=== PATIENT | male | born 1980 | race Caucasian/White ===

== ENCOUNTER 2016-12-16 15:12 | Emergency (ER) | payer OTHER ==
[~2016-12-16 15:12] MED LIST: TRAMADOL HCL50 M1 PO
== END 2016-12-16 18:20 | disposition home or self-care (01) ==
LOC: CED 15:12
DX: T78.3XXA Angioneurotic edema, initial encounter (principal); T78.40XA Allergy, unspecified, initial encounter; E11.9 Type 2 diabetes mellitus without complications; I10 Essential (primary) hypertension; Z86.73 Personal history of transient ischemic attack (TIA), and cerebral infarction without residual deficits; E78.5 Hyperlipidemia, unspecified; Z88.0 Allergy status to penicillin; Z88.8 Allergy status to other drugs, medicaments and biological substances
CPT/HCPCS: 36415; 82947; 96374; 96375; 99284; J1200; J2930

== ENCOUNTER 2017-02-06 11:10 | Emergency (ER) | payer OTHER ==
--- NOTE | ~2017-02-06 | CT4 ---
[facility] A Service of [facility] RADIOLOGY TEXT RESULTS PATIENT: BINDU MAN LOCATION: [facility] : [birth year] UNIT #: [id number] AGE: [address]: Rakesh Steele MD SEX: M ORDER DR: [id number] [facility] [address] [place], [place] [address] [id number] MR#: [id number] Acc #: [id number] NAME: BINDU MAN : 1980 SEX: M STUDY DATE/TIME: 02/06/2017 12:45 UNIT: [facility] ROOM: STUDY DESCRIPTION: CT Abd and Pelv Wo Cont Attending Physician: Rakesh Steele M.D. Ordering Physician: Rakesh Steele M.D. Primary Care Physician: No Primary Care Physician MEDICAL IMAGING REPORT This report is preliminary unless electronic signature is present EXAM CT scan of the abdomen and pelvis without contrast. HISTORY Abscess in right abdominal wall with pus leaking out for 3 days. Right-sided pain. COMPARISON 08/06/2016 TECHNIQUE Axial 3-mm images were obtained through the abdomen and pelvis without IV or oral contrast. This CT exam was performed with one or more of the following radiation dose reduction techniques: automatic exposure control, adjustment of mA and/or kV according to patient size, and iterative reconstruction. FINDINGS There is a 1-cm nodule in the right lower lobe, unchanged from 08/06/2016. This was also noted in February 2014 and is unchanged. The liver, gallbladder, spleen, pancreas, adrenal glands, and kidneys are normal in appearance. The aorta is normal in size. There is no adenopathy. The bowel is normal, and the bladder and prostate gland are normal. In the right flank laterally, slightly above the umbilicus, there is skin thickening involving a large area that is at least 20 from front to back. There is increased density in the subcutaneous fat, and within this increased density, there is about a 5-cm area of air bubbles, consistent with an abscess. No fluid is visible. A similar, but smaller, abnormality is present in the upper right buttock region. This is composed primarily of a few air bubbles in the STS. [facility] A Service of [facility] RADIOLOGY TEXT RESULTS PATIENT: BINDU MAN LOCATION: [facility] : [birth year] UNIT #: [id number] AGE: [address]: Rakesh Steele MD SEX: M ORDER DR: subcutaneous fat. It is about 4 cm x 2.7 cm. there is no obvious overlying skin thickening on CT, and there is no inflammation in the fat. IMPRESSION 1. In the right flank slightly above the level of the umbilicus, there is a large area of skin thickening measuring at least 20 cm in maximum diameter, with underlying increased density in the subcutaneous fat, consistent with inflammation or infection. Centrally, within this region is about a 5-6 cm area of air bubbles extending up to the skin, consistent with subcutaneous abscess. 2. Lower in the right abdomen, more posteriorly, lateral to the mid buttocks region, there is a subcutaneous 4 x 3-cm area of air bubbles, consistent with a second abscess. This has very little, if any, visible skin thickening, and there is no surrounding inflammation. 3. Stable 1-cm nodule, right base, is unchanged since 2014, consistent with a granuloma. Dictated by... Daniel Robertson M.D. THIS IS AN ELECTRONICALLY VERIFIED REPORT Daniel Robertson M.D. at 02/07/2017 7:06 AM Edilma TD: 02/06/2017 17:45 JOB #: [id number] MEDICAL IMAGING REPORT Page 1 of 1 COPY
--- NOTE | ~2017-02-06 | EKG ---
PATIENT: BINDU MAN UNIT #: [id number] Ventricular Rate: 109 BPM Atrial Rate: 109 BPM P-R Interval: 118 ms QRS Duration: 86 ms Q-T Interval: 336 ms QTC Calculation(Bezet): 452 ms P [place]: 41 degrees Calculated R [place]: 43 degrees Calculated T [place]: 8 degrees Diagnosis Line: Sinus tachycardia Diagnosis Line: Otherwise normal ECG Diagnosis Line: When compared with ECG of 14-MAY-2016 01:33, Diagnosis Line: No significant change was found Diagnosis Line: Confirmed by LIANET WEST MD ([id number]) on Diagnosis Line: 02/06/2017 3:52:59 PM INTERPRETING MD: BRETT RICHARDS
[2017-02-06 12:10] LABS: BASOPHIL# 0.1 X10e3 (0-0.3); BASOPHIL% 0.8 % (0-2.5); DIFF IND NO; EOSINOPHIL# 0.1 X10e3 (0-0.7); EOSINOPHIL% 0.7 % (0.0-7.0); HEMATOCRIT 35.9 % (38.0-50.0); HEMOGLOBIN 11.4 gm/dL (13.0-16.0); LYMPHOCYTE% 9.8 % (17.0-45.0); MEAN CELL VOLUME 73.8 FL (83-96); MEAN CORPUSCULAR HEMOGLOBIN 23.4 PG (28-34); MEAN CORPUSCULAR HGB CONC 31.7 g/dL (30-36); MEAN PLATELET VOLUME 8.5 FL (6.5-11.5); MONOCYTE# 1.3 X10e3 (0-1.0); MONOCYTE% 13.2 % (3.0-12.0); NEUTROPHIL# 7.4 X10e3 (1.5-7.1); NEUTROPHIL% 75.5 % (40-75); PLATELET COUNT 316 X10e3 (140-420); RED BLOOD COUNT 4.86 X10e (3.90-5.60); RED CELL DISTRIBUTION WIDTH 15.9 % (11.0-15.5); WHITE BLOOD COUNT 9.8 X10e3 (4.0-10.5)
[2017-02-06 12:30] LABS: CALCIUM SERUM 8.8 mg/dL (8.4-10.2); GLOM FILT RATE Estimated 97.1 mL/min (>60); POTASSIUM 4.4 mmol/L (3.5-5.1)
== END 2017-02-06 14:50 | disposition home or self-care (01) ==
LOC: CED 11:10
PROVIDERS: Emergency Medicine
DX: L02.211 Cutaneous abscess of abdominal wall (principal); E11.9 Type 2 diabetes mellitus without complications; I10 Essential (primary) hypertension; Z88.0 Allergy status to penicillin
CPT/HCPCS: 36415; 74176; 80048; 85025; 93005; 96372; 99284; J1885

== ENCOUNTER 2017-02-09 11:08 | Inpatient (IN) | payer OTHER ==
--- NOTE | ~2017-02-09 | OR ---
Unit #: [id number] #: [id number] Patient: BINDU MAN [id number] [address] [place], [place] [address] [id number] MR#: [id number] NAME: BINDU MAN ROOM: 323 Date of Procedure: 02/10/2017 Admission Date: 02/09/2017 Surgeon: Bill Cheng M.D. : 1980 Attending Physician: You Gutiérrez M.D. OPERATIVE REPORT PREOPERATIVE DIAGNOSIS Abscess, right flank. POSTOPERATIVE DIAGNOSIS Abscess, right flank. PROCEDURES PERFORMED Incision drainage and debridement of an 18 cm x 6 cm x 4 cm abscess, right flank. ESTIMATED BLOOD LOSS 50 mL. INDICATIONS FOR PROCEDURE Mr. Reardon is a poorly-controlled diabetic at 37 years of age. He has had multiple soft tissue infections and presented to the ER for the second time in 3 days with an abscess in the right flank. Despite oral antibiotics as an outpatient, it had progressed and there was associated cellulitis and gross purulent drainage. He is brought to the operating room for adequate debridement and drainage. DESCRIPTION OF PROCEDURE The patient was transported from his hospital room to the operating room, and after induction of general endotracheal anesthesia, he was placed in a lateral position with the right side up. He was then prepped and draped in usual sterile fashion. With the abscess was spontaneously draining, a probe was passed to define the extent of tunneling of the abscess cavity and this was marked. A 10-blade was then used to open and unroof the abscess cavity and further purulent drainage was evacuated. The necrotic and grossly infected tissue was sharply debrided and hemostasis obtained. I then copiously irrigated the wound with sterile saline and ensured hemostasis and then packed the wound with Kerlix soaked in Betadine. To hold the packing in position for 24 hours, a #1 Vicryl sutures were used as stay sutures. ABD and foam tape were placed as dressing. Sponges and needle counts were correct x3. The patient tolerated the procedure well and transported to recovery in stable condition. Dictated by... Bill Cheng M.D. RS/modl Unit #: [id number] #: [id number] Patient: BINDU MAN TD: 02/10/2017 15:03 JOB #: [id number] OPERATIVE REPORT Page 1 of 1 X Bill Cheng MD PROCEDURE OPERATIVE NOTE
--- NOTE | ~2017-02-09 | HP ---
Unit #: [id number] #: [id number] Patient: BINDU MAN [id number] [address] [place], [place] [address] [id number] I MR#: [id number] NAME: BINDU MAN ROOM: 33216 Age: 37 Sex: M Admission Date: 02/09/2017 : 1980 Attending Physician: Carli Hercules M.D. Primary Care Physician: Primary Care Physician No HISTORY AND PHYSICAL CHIEF COMPLAINT Abscess right side HISTORY OF PRESENT ILLNESS The patient is a 37-year-old male with past medical history of diabetes, hypertension, hyperlipidemia, cerebrovascular accident who presented to the emergency department for evaluation of the above. The patient states that he noticed a bump on his abdomen about a week ago. It has gotten progressively bigger and more red. He states that it is quite painful. He was seen in the emergency department on February 06, 2017. A CT of the abdomen and pelvis was done and showed findings consistent with abscess/cellulitis. He was discharged home on clindamycin which he has been taking. He states that he has been taking two pills twice daily instead of one pill four times daily, but he has been taking it with no improvement. It is now draining, malodorous, pus. He reports chills, but no documented fever. In the emergency department today, he was given Vancomycin as well as morphine and Zofran. He is being admitted to [facility] for evaluation and further treatment. PAST MEDICAL HISTORY 1. Admission to [facility] in May 2016 for what sounds like hemorrhagic stroke. He had apparently had a stroke in March 2016. He was placed on Coumadin at that time, then had a subsequent bleed. He was taken off Coumadin in May (no records). 2. Cerebrovascular accident in March 2016 with residual weakness of the right upper extremity and speech abnormalities. 3. Hypertension. 4. Hyperlipidemia. 5. Diabetes. PAST SURGICAL HISTORY 1. Left ankle surgery. 2. Left carotid endarterectomy. 3. Incision and drainage of abscesses. SOCIAL HISTORY The patient lives with his . There is no tobacco or alcohol use. He is on disability. The patient states that he walks without assistance. FAMILY HISTORY Is notable for his mother having COPD. He does not know his dad's Unit #: [id number] #: [id number] Patient: BINDU MAN history. ALLERGIES Penicillin HOME MEDICATIONS 1. Cetirizine 10 mg daily 2. Zantac 150 mg twice daily 3. Amitriptyline 75 mg daily 4. Lipitor 80 mg daily 5. Aspirin 81 mg daily 6. Plavix 75 mg daily 7. Prinivil 40 mg daily 8. Amlodipine 10 mg daily 9. Levemir 25 units daily 10. Propanolol 80 mg daily REVIEW OF SYSTEMS A complete review of systems is negative except as indicated in the HPI. The patient states his blood sugars are typically in the 200s. DIAGNOSTIC STUDIES IMAGING: CT of the abdomen and pelvis from February 06, 2017, showed findings concerning for abscess/cellulitis involving the right flank and right abdomen. LABORATORY: Complete blood count from today notable for a hemoglobin and hematocrit of 10.6 and 33.2 respectively. Basic metabolic panel notable for a glucose of 337. PHYSICAL EXAMINATION VITAL SIGNS: Temperature 98.6, pulse 104, respirations 16, blood pressure 154/98. Oxygen saturation is 100% on room air. GENERAL: The patient is a male who is awake and alert in no acute distress. HEENT: The head is atraumatic. Mucous membranes are moist. NECK: Supple. Trachea is midline. CARDIOVASCULAR: Regular rate and rhythm. LUNGS: Clear to auscultation bilaterally. There is no increased work of breathing. ABDOMEN: Tender to palpation in the region of cellulitis/abscess. Bowel sounds are present. EXTREMITIES: Nontender with no pedal edema. NEUROLOGIC: The patient is awake and alert. He follows commands. PSYCHIATRIC: Mood and affect are normal. The patient is cooperative. SKIN: The right lower abdomen demonstrates an open wound that is approximately dime sized that is actively draining purulent material with surrounding errythema, warmth and induration. He is tenderness to palpation in this area. Extremities are nontender with no pedal edema. ASSESSMENT The patient is a 37-year-old male with: 1. Abdominal wall abscess/cellulitis. There are two distinct areas of abscess noted on CT. The patient failed outpatient treatment with clindamycin. He received Vancomycin in the emergency department. 2. Uncontrolled diabetes. The patient's glucose is 337 on basic metabolic panel. Unit #: [id number] #: [id number] Patient: BINDU MAN 3. Microcytic anemia. The patient's hemoglobin was 11.4 on February 06, 2017, it is 10.6 today. 4. History of cerebrovascular accident with residual right-sided weakness. 5. Hypertension. 6. Hyperlipidemia. PLAN 1. Admit to intermediate level. 2. Healthy heart, consistent carbohydrate diet. 3. Nothing by mouth after midnight for likely surgical intervention. 4. Normal saline at 75 mL/hour. 5. Blood cultures x2. 6. Wound culture and sensitivity. 7. Vancomycin IV pending further workup. 8. Consult [facility] regarding abdominal wall abscess. 9. Morphine p.r.n. 10. Zofran p.r.n. 11. Hemoglobin A1c 12. Low dose sliding scale insulin with AccuChek. 13. Check EKG for further evaluation of tachycardia. 14. Repeat labs in the morning including INR. 15. Sequential compression devices for deep venous thrombosis prophylaxis. 16. Hold aspirin and Plavix. 17. Additional workup and consultants based on above. Dictated by Carli Hercules M.D. LINDA/nae TD: 02/09/2017 18:18 JOB #: [id number] HISTORY AND PHYSICAL Page 1 of 1 X Carli Hercules MD X HISTORY AND PHYSICAL
--- NOTE | ~2017-02-09 | EKG ---
PATIENT: BINDU MAN UNIT #: [id number] Ventricular Rate: 112 BPM Atrial Rate: 112 BPM P-R Interval: 116 ms QRS Duration: 78 ms Q-T Interval: 328 ms QTC Calculation(Bezet): 447 ms P [place]: 26 degrees Calculated R [place]: 25 degrees Calculated T [place]: 13 degrees Diagnosis Line: Sinus tachycardia Diagnosis Line: Otherwise normal ECG Diagnosis Line: When compared with ECG of 06-FEB-2017 11:53, Diagnosis Line: No significant change was found Diagnosis Line: Confirmed by PAOLO SURESH MD ([id number]) on Diagnosis Line: 02/10/2017 10:04:54 AM INTERPRETING MD: MÓNICA
--- NOTE | ~2017-02-09 | DS ---
Unit #: [id number] #: [id number] Patient: BINDU MAN [id number] [address] [place], [place] [address] [id number] I MR#: [id number] NAME: BINDU MAN ROOM: 238 Age: 37 Sex: M Admission Date: 02/09/2017 : 1980 Discharge Date: 02/12/2017 Attending Physician: You Gutiérrez M.D. Primary Care Physician: No Primary Care Physician DISCHARGE SUMMARY REASON FOR ADMISSION Right abdominal wall abscess. HISTORY OF PRESENT ILLNESS/HOSPITAL COURSE Patient is a very pleasant 37-year-old male with an underlying history of diabetes, hypertension, hyperlipidemia, prior history of CVA, who presented secondary to abdominal wall abscess/cellulitis. Please refer to H and P for complete details. He was subsequently admitted. He underwent a CT abdomen and pelvis without contrast on February 06, 2017 performed in the emergency room. It did reveal in the right flank a large area of skin thickening measuring approximately 20 cm consistent with inflammation and/or infection. Lower in the right abdomen, more posteriorly, there is a subcutaneous 4 x 3 cm area of air bubbles consistent with a second abscess. Because of these abnormal results and secondary to a history of diabetes with his hemoglobin A1C this hospital admission being 9%, consultation was placed to [facility] who saw and evaluated patient. Ultimately patient did undergo an I/D of the aforementioned area on February 10, 2017. Postoperatively he otherwise did well and his pain was controlled initially with IV medications, subsequently transitioned to p.o. medications. Through hospital course he underwent routine Accu-Cheks secondary to his history of diabetes and was maintained on appropriate symptom management. At this point in time patient is clinically stable for discharge. [facility] has made a recommendation for Orbactiv at time of discharge therefore the patient will be discharged home. He will follow up in short stay later for Orbactiv injection. He will follow up with Dr. Neena Castillo at [address] in approximately 7 to 10 days for diabetic management, hypertension management as well as in regard to his prior CVA history. He will follow up with [facility] in approximately 7 to 10 days for wound reevaluation. VNA/Home health services will also follow the patient at time of discharge for appropriate wound care dressings and/or changes. FINAL DIAGNOSES Unit #: [id number] #: [id number] Patient: BINDU MAN 1. Abdominal wall abscess x2, status post incision and debridement. 2. Diabetes with hemoglobin A1C 9%, poorly controlled. 3. Prior history of cerebrovascular accident March 2016. 4. Residual right upper extremity weakness. 5. Hypertension. 6. Hyperlipidemia. 7. Obesity. DISCHARGE MEDICATIONS 1. Lortab 7.5/325 one tablet p.o. q.6 h. p.r.n. #30 prescription given by [facility]. 2. Elavil 75 mg p.o. q.h.s. 3. Cetirizine 10 mg p.o. daily. 4. Lipitor 80 mg p.o. q.h.s. 5. Norvasc 10 mg p.o. daily. 6. Inderal LA 80 mg p.o. daily. 7. Zestril 40 mg p.o. daily, 8. Levemir 25 units subcu q.a.m. 9. Zantac 150 mg p.o. b.i.d. 10. Aspirin 81 mg p.o. daily. 11. Plavix 75 mg p.o. daily. DISCHARGE CONDITION Stable. DISCHARGE DISPOSITION Home. FOLLOWUP Appropriate followup as outlined above. Dictated by... Bell Gutierrez/aimee TD: 02/12/2017 15:06 JOB #: [id number] DISCHARGE SUMMARY Page 1 of 1 X You Gutiérrez MD X DISCHARGE SUMMARY
--- NOTE | ~2017-02-09 | BMI ---
[facility] Nutrition Therapy DATE: 02/11/17 Patient: BINDU MAN Physician: ETELVINA Address: [address] [place] [address] Room/Bed: [address] [place] [address], Zip: [place] [address] Admit Date: 02/09/17 Date of : [birth year] Height: 4 11 Weight: 226 102.6 HIGH BMI NOTE: ANTHROPOMETRICS: HT: 4'11" WT: 102.6 KG BMI: 45.7 DIET: CONSISTENT CARBOHYDRATE RECOMMENDATIONS: 1. ADD A HEART HEALTHY DIET RESTRICTION IN ORDER TO PROMOTE GRADUAL WEIGHT LOSS TOWARDS A HEALTHY BMI. Respectfully, NAKUL VOGEL RD, LD [employer] [facility] cc: client file
--- NOTE | ~2017-02-09 | CO ---
Unit #: [id number] #: [id number] Patient: BNIDU MAN [id number] [address] [place], [place] [address] [id number] MR#: [id number] NAME: BINDU MAN ROOM: 323 Age: 37 Sex: M Admission Date: 02/09/2017 : 1980 Attending Physician: You Gutiérrez M.D. Primary Care Physician: Primary Care Physician No Consultation Date: 02/09/2017 CONSULTATION REPORT PRIMARY CARE PHYSICIAN Unknown. HISTORY OF PRESENT ILLNESS Mr. Reardon is a 37-year-old gentleman with poorly-controlled diabetes, who presents back to the emergency room 3 days after his initial visit with a spontaneously draining abscess in the right flank. He was initially seen on 02/06/2017 and he had some erythema and tenderness, but did not have a daniel abscess. He was put on outpatient oral antibiotics and has now had progression and it has developed into cellulitis with spontaneously draining abscess. The patient denies any trauma to the area. He has not had any injections in this area. He has had previous skin abscesses and a previous wound culture grew out E. coli. PAST MEDICAL HISTORY He had a stroke a year ago from what sounds like a spontaneous clot in the carotid artery and underwent carotid endarterectomy, history of poorly-controlled diabetes, hypertension, hypercholesterolemia, he has had left knee surgery, and he has anemia of chronic disease. ALLERGIES Allergic to penicillin. MEDICATIONS Well documented on the reconciliation sheet and they include cetirizine 10 mg daily, Zantac 150 mg b.i.d., Elavil 75 mg at bedtime, Lipitor 80 mg daily, aspirin 81 mg daily, Prinivil 40 mg daily, amlodipine 10 mg daily, Levemir 25 units subcutaneous b.i.d., Plavix 75 mg daily, and propranolol 80 mg daily. FAMILY HISTORY Diabetes. SOCIAL HISTORY Noncontributory. . is at the bedside. REVIEW OF SYSTEMS Previous culture is discussed. It is unclear the etiology of his stroke. He is unaware if he has ever had hypercoagulable evaluation. PHYSICAL EXAMINATION VITAL SIGNS: Temperature is 98.6, pulse 113 and regular, respirations 30 and unlabored, blood pressure 159/102. GENERAL: He is awake, alert, oriented in all spheres. Pleasant and Unit #: [id number] #: [id number] Patient: BINDU MAN. HEENT: No carotid bruits. CARDIAC: Regular rate and rhythm without murmur. LUNGS: Clear throughout. ABDOMEN: Soft. There are no peritoneal signs in the right flank. He has an open wound of about 2.5 x 2 cm with frankly purulent drainage. There is a tract extending along the flank that is erythematous and when I pressed on the tract, gross purulent drainage is expressed. EXTREMITIES: No clubbing, cyanosis, or edema. NEUROLOGIC: Cranial nerves grossly intact. Moves all 4 extremities. Detailed testing for weakness was not carried out. DIAGNOSTIC STUDIES LABORATORY RESULTS: CBC shows a microcytic anemia. CMP is within normal limits except for his blood glucose of 306. IMAGING STUDIES: CT from 02/06/2017 shows right flank inflammation consistent with where he has the current abscess, there was a stable right lung nodule. ASSESSMENT AND PLAN Despite antibiotics, the patient has had progression of his right flank infection. He now has a spontaneously draining abscess with cellulitis. The abscess tracked tunnels posteriorly to the flank and there was about a 10 cm area of cellulitis from which I can express gross purulent drainage with pressure. I discussed with the patient doing incision, drainage, and debridement in the operating room. The wound will be left open and I discussed with the patient and his doing home dressing changes. We will ask VNA to see the family to assist with that at home. We will also ask the workforce investment act career managerretirement village manager to set up outpatient Orbactiv treatment since he has had multiple previous abscesses and has had progression of this abscess while on oral antibiotics. Dictated by... Bell Trejo/radha TD: 02/10/2017 22:49 JOB #: [id number] CONSULTATION REPORT Page 1 of 1 X Bill Cheng MD CONSULTATION REPORT
[2017-02-09 12:56] LABS: BASOPHIL% 0.4 % (0-2.5); EOSINOPHIL% 0.8 % (0.0-7.0); HEMATOCRIT 33.2 % (38.0-50.0); HEMOGLOBIN 10.6 gm/dL (13.0-16.0); LYMPHOCYTE% 23.2 % (17.0-45.0); MEAN CELL VOLUME 72.8 FL (83-96); MEAN CORPUSCULAR HEMOGLOBIN 23.3 PG (28-34); MEAN PLATELET VOLUME 7.8 FL (6.5-11.5); MONOCYTE# 0.4 X10e3 (0-1.0); MONOCYTE% 8.7 % (3.0-12.0); NEUTROPHIL% 66.9 % (40-75); PLATELET COUNT 466 X10e3 (140-420); RED BLOOD COUNT 4.56 X10e (3.90-5.60); RED CELL DISTRIBUTION WIDTH 16.2 % (11.0-15.5); WHITE BLOOD COUNT 4.5 X10e3 (4.0-10.5)
[2017-02-09 13:02] LABS: DIFF IND NO
[2017-02-09 13:05] LABS: BUN/CREATININE RATIO 12.85; CALCIUM SERUM 9.1 mg/dL (8.4-10.2); CREATININE SERUM 0.7 mg/dL (0.6-1.4); GLOM FILT RATE Estimated 122.3 mL/min (>60); POTASSIUM 3.8 mmol/L (3.5-5.1)
[2017-02-09] MEDS ORDERED: ALL DAY ALLERGY10 M3 PO (14:09)
[2017-02-09] MEDS ORDERED: LIPITOR80 MG PO (14:10)
[2017-02-09] MEDS ORDERED: AMITRIPTYLINE H75 MG PO (14:10)
[2017-02-09] MEDS ORDERED: ZANTAC150 M1 PO (14:10)
[2017-02-09] MEDS ORDERED: PRINIVIL40 MG PO (14:11)
[2017-02-09] MEDS ORDERED: ASPIRIN81 MG PO (14:11)
[2017-02-09] MEDS ORDERED: AMLODIPINE BESY10 MG PO (14:11)
[2017-02-09] MEDS ORDERED: CLOPIDOGREL75 MG PO (14:13)
[2017-02-09] MEDS ORDERED: LEVEMIR100 UNITS/ SUBQ (14:13)
[2017-02-09] MEDS ORDERED: PROPRANOLOL HCL80 MG PO (14:14)
[2017-02-10 06:12] LABS: PROTHROMBIN TIME (PATIENT) 11.3 SECONDS (10.0-11.7)
[2017-02-10 07:27] LABS: HEMATOCRIT 30.8 % (38.0-50.0); HEMOGLOBIN 9.6 gm/dL (13.0-16.0); MEAN CELL VOLUME 73.1 FL (83-96); MEAN CORPUSCULAR HEMOGLOBIN 22.9 PG (28-34); MEAN CORPUSCULAR HGB CONC 31.3 g/dL (30-36); MEAN PLATELET VOLUME 7.3 FL (6.5-11.5); RED BLOOD COUNT 4.21 X10e (3.90-5.60); RED CELL DISTRIBUTION WIDTH 15.9 % (11.0-15.5); WHITE BLOOD COUNT 5.1 X10e3 (4.0-10.5)
[2017-02-10 10:12] LABS: ALBUMIN SERUM 2.6 g/dL (3.5-5.0); BILIRUBIN,TOTAL 0.2 mg/dL (0.2-2.0); BUN/CREATININE RATIO 17.5; CALCIUM SERUM 8.5 mg/dL (8.4-10.2); CREATININE SERUM 0.8 mg/dL (0.6-1.4); GLOM FILT RATE Estimated 115.8 mL/min (>60); MAGNESIUM 1.6 mg/dL (1.6-3.0); POTASSIUM 4.2 mmol/L (3.5-5.1)
[2017-02-11 05:30] LABS: HEMATOCRIT 30.7 % (38.0-50.0); HEMOGLOBIN 9.7 gm/dL (13.0-16.0); MEAN CELL VOLUME 73.8 FL (83-96); MEAN CORPUSCULAR HEMOGLOBIN 23.3 PG (28-34); MEAN CORPUSCULAR HGB CONC 31.5 g/dL (30-36); MEAN PLATELET VOLUME 7.5 FL (6.5-11.5); RED BLOOD COUNT 4.16 X10e (3.90-5.60); RED CELL DISTRIBUTION WIDTH 15.9 % (11.0-15.5); WHITE BLOOD COUNT 6.1 X10e3 (4.0-10.5)
[2017-02-11 06:29] LABS: BUN/CREATININE RATIO 14.28; CREATININE SERUM 0.7 mg/dL (0.6-1.4); GLOM FILT RATE Estimated 122.3 mL/min (>60)
[2017-02-12 05:58] LABS: HEMATOCRIT 28.9 % (38.0-50.0); HEMOGLOBIN 9.2 gm/dL (13.0-16.0); MEAN CELL VOLUME 72.9 FL (83-96); MEAN CORPUSCULAR HEMOGLOBIN 23.1 PG (28-34); MEAN CORPUSCULAR HGB CONC 31.7 g/dL (30-36); MEAN PLATELET VOLUME 7.1 FL (6.5-11.5); RED BLOOD COUNT 3.96 X10e (3.90-5.60); RED CELL DISTRIBUTION WIDTH 16.1 % (11.0-15.5)
[2017-02-12 06:39] LABS: BUN/CREATININE RATIO 16.25; CALCIUM SERUM 8.2 mg/dL (8.4-10.2); CREATININE SERUM 0.8 mg/dL (0.6-1.4); GLOM FILT RATE Estimated 115.8 mL/min (>60); POTASSIUM 3.8 mmol/L (3.5-5.1)
[2017-02-12] MEDS ORDERED: LEVEMIR100 UNITS/ SUBQ (14:42)
[2017-02-12] MEDS ORDERED: ORBACTIV400 MG IV (14:43)
[2017-02-12] MEDS ORDERED: LORTAB 7.5-3251 EACH PO (14:43)
== END 2017-02-12 14:56 | disposition home or self-care (01) | DRG 571 ==
LOC: CED 11:08 → C2A 15:00 → CEDOF 15:00 → CED 16:01 → C3A PCU 16:01 → CEDOF 22:35 → C3A PCU 02-10 07:41 → C2A 02-11 10:42
PROVIDERS: Emergency Medicine; Family Medicine; Specialist
PROC: 0JB80ZZ Excision of Abdomen Subcutaneous Tissue and Fascia, Open Approach (ICD-10-PCS; principal; 2017-02-10 09:00)
DX: L02.211 Cutaneous abscess of abdominal wall (principal); I69.351 Hemiplegia and hemiparesis following cerebral infarction affecting right dominant side; E11.65 Type 2 diabetes mellitus with hyperglycemia; I10 Essential (primary) hypertension; Z68.42 Body mass index [BMI] 45.0-49.9, adult; I69.328 Other speech and language deficits following cerebral infarction; Z88.0 Allergy status to penicillin; K21.9 Gastro-esophageal reflux disease without esophagitis; E78.5 Hyperlipidemia, unspecified; J44.9 Chronic obstructive pulmonary disease, unspecified; E66.01 Morbid (severe) obesity due to excess calories; E78.00 Pure hypercholesterolemia, unspecified; D63.8 Anemia in other chronic diseases classified elsewhere; Z79.82 Long term (current) use of aspirin; Z79.02 Long term (current) use of antithrombotics/antiplatelets; Z83.3 Family history of diabetes mellitus
CPT/HCPCS: 36415; 80048; 80053; 80202; 82947; 83036; 83735; 84100; 85025; 85027; 85610; 87040; 87070; 87205; 93005; 96374; 96375; 99285; J1170; J1815; J2060; J2250; J2270; J2405; J2710; J3010; J3370

== ENCOUNTER → 2017-02-12 | Outpatient (CLI) | payer OTHER ==
[~2017-02-12] MED LIST changes: +ALL DAY ALLERGY10 M3 PO; +AMITRIPTYLINE H75 MG PO; +AMLODIPINE BESY10 MG PO; +ASPIRIN81 MG PO; +BACTRIM DS TAB1 EACH PO; +CLOPIDOGREL75 MG PO; +DAKIN'S473 M1 TOP; +FLOMAX0.4 M1 PO; +FOLIC ACID1 MG PO; +LEVEMIR100 UNITS/ SUBQ; +LIPITOR80 MG PO; +LO-DOSE ASPIRIN81 M1 PO; +LOPRESSOR PO; +LORTAB 7.5-3251 EACH PO; +METFORMIN PO; +NORVASC10 MG PO; +ORBACTIV400 MG IV; +PERCOCET5/325 PO; +PRINIVIL40 MG PO; +PROPRANOLOL HCL80 MG PO; +PROPRANOLOL PO; +TRESIBA FL100 UNIT/1 SUBQ; +ZANTAC150 M1 PO; +ZESTRIL40 MG PO
== END | disposition home or self-care (01) ==
LOC: CSSDAY 15:06
DX: L03.311 Cellulitis of abdominal wall (principal); Z79.2 Long term (current) use of antibiotics
CPT/HCPCS: 96365; 96366; J2407; J7060

== ENCOUNTER 2017-03-21 13:32 | Inpatient (IN) | payer OTHER ==
--- NOTE | ~2017-03-21 | CO ---
Unit #: [id number] #: [id number] Patient: BINDU MAN [id number] [address] [place], [place] [address] [id number] I MR#: [id number] NAME: BINDU MAN ROOM: [facility] Age: 37 Sex: M Admission Date: 03/21/2017 : 1980 Attending Physician: Karely Pro M.D. Primary Care Physician: Karely Pro M.D. CONSULTATION REPORT CHIEF COMPLAINT Burning urination. HISTORY OF PRESENT ILLNESS A 37-year-old gentleman, who complains of difficulty initiating his stream and burning urination x1 week. Yesterday, it was worse. He states he was unable to urinate for 24 hours. The patient also reported very severe pain with urination. He was evaluated yesterday and admitted to the hospital. The patient had a CT scan that showed stranding around the bladder, but no hydronephrosis and no large residual. Bladder scan shows 0 mL residual. Since being in the hospital, the patient is feeling better. He has pain with urination at the very end of the urination. He denies gross hematuria. He denies fever or chills. The pain occurs every time he urinates, but only at the end of the stream for that duration of time. PAST MEDICAL HISTORY Stroke, diabetes, hypertension, hyperlipidemia, left carotid endarterectomy, incision and drainage of abdominal wall abscess, left ankle surgery. SOCIAL HISTORY Negative for smoking or drinking. FAMILY HISTORY Negative for any urologic problems. ALLERGIES Penicillin. MEDICATIONS Propranolol, Levemir, amlodipine, Prinivil, Plavix, aspirin, Lipitor, Elavil, Zantac, and Zyrtec. REVIEW OF SYSTEMS Negative for all 10 systems except for pain with urination at the end. DIAGNOSTIC STUDIES IMAGING STUDIES: CT scan shows stranding around the bladder, but no hydronephrosis, no stones. LABORATORY RESULTS: Urinalysis positive for nitrites and leukocyte esterase as well as bacteria. Normal white count. Creatinine 0.9. Unit #: [id number] #: [id number] Patient: BINDU MAN PHYSICAL EXAMINATION VITAL SIGNS: Afebrile. Vital signs stable. GENERAL: Alert and oriented, in no acute distress, obese man. HEENT: Head is atraumatic. Eyes, equal and reactive to light. NECK: Supple. CARDIOVASCULAR: Benign. LUNGS: Benign. ABDOMEN: Soft without rebound or guarding. The patient has a dressing on his right abdominal wall from his abscess. EXTREMITIES: No clubbing or cyanosis. NEUROLOGIC: Cranial nerves II through XII intact. SKIN: No clubbing, cyanosis, or edema. ASSESSMENT Suspect cystitis and prostatitis. The patient on antibiotics. Urine culture shows gram-negative rods. We will wait for the culture results. As long as he is able to urinate, no need for catheter. Thank you for the chance to participate in his care. Dictated by... Lukasz Grissom M.D. TJEAS/radha TD: 03/22/2017 08:28 JOB #: [id number] CONSULTATION REPORT Page 1 of 1 X Lukasz Grissom MD X CONSULTATION REPORT
--- NOTE | ~2017-03-21 | CT4 ---
[facility] A Service of [facility] & [facility] RADIOLOGY TEXT RESULTS PATIENT: BINDU MAN LOCATION: [facility] 473-01 : [birth year] UNIT #: [id number] AGE: [address]: Karely Pro MD SEX: M ORDER DR: [id number] [facility] [address] [place], [place] [address] [id number] MR#: [id number] #: [id number] NAME: BINDU MAN : 1980 SEX: M STUDY DATE/TIME: 03/21/2017 20:12 UNIT: [facility] ROOM: [facility] STUDY DESCRIPTION: CT Abd and Pelv Wo Cont Attending Physician: Karely Pro M.D. Ordering Physician: Hany Luciano M.D. Primary Care Physician: Karely Pro M.D. MEDICAL IMAGING REPORT This report is preliminary unless electronic signature is present EXAM Abdomen and pelvis CT, 03/21/2012. INDICATIONS Lower abdominal pain and groin pain for 1 week. TECHNIQUE Axial images were obtained through the abdomen and pelvis without contrast. Multiplanar reformats were obtained. Comparison made with 02/06/2017. This CT exam was performed with one or more of the following radiation dose reduction techniques: automatic exposure control, adjustment of mA and/or kV according to patient size, and iterative reconstruction. FINDINGS ABDOMEN: There is a stable benign 9 mm granuloma in the right lower lobe. Lung bases are otherwise clear. Gallbladder contracted. No renal or ureteral stones are seen. No hydronephrosis. Unenhanced solid organs are normal. No free fluid. Unopacified GI tract is normal. PELVIS: The appendix is normal. Distal small bowel is normal. The lower colon is normal except for a few sigmoid diverticula. There is some mild fat stranding around a decompressed urinary bladder. This could indicate cystitis. Correlate with urinalysis results. No lower ureteral stones are seen. IMPRESSION 1. Fat stranding around the urinary bladder suggesting cystitis. No renal or ureteral stones. Hydronephrosis. 2. Normal unopacified GI tract, including the appendix, except for some mild sigmoid diverticulosis. 3. Otherwise negative. [facility] A Service of [facility] & [facility] RADIOLOGY TEXT RESULTS PATIENT: BINDU MAN LOCATION: [facility] 473-01 : [birth year] UNIT #: [id number] AGE: [address]: Karely Pro MD SEX: M ORDER DR: Dictated by... Bill Brasher Jr., M.D. THIS IS AN ELECTRONICALLY VERIFIED REPORT Bill Brasher Jr., M.D. at 03/25/2017 5:49 AM DUANE/yang TD: 03/22/2017 09:57 JOB #: [id number] MEDICAL IMAGING REPORT Page 1 of 1 COPY
--- NOTE | ~2017-03-21 | DS ---
Unit #: [id number] #: [id number] Patient: ALEXANDRU GLORIA [id number] [address] [address] [id number] I MR#: [id number] NAME: ALEXANDRU GLORIA ROOM: [facility] Age: 37 Sex: M Admission Date: 03/21/2017 : 1980 Discharge Date: 03/23/2017 Attending Physician: Karely Pro M.D. Primary Care Physician: Karely Pro M.D. DISCHARGE SUMMARY FINAL DIAGNOSES 1. Cystitis. 2. Prostatitis. 3. Dysuria secondary to above. 4. History of deep venous thrombosis. 5. History of cerebrovascular accident with hemorrhagic transformation. 6. Diabetes mellitus. 7. Hyperlipidemia. 8. Morbid obesity. DISCHARGE MEDICATIONS ARE: 1. Flomax 0.4 mg daily. 2. Folic acid 1 mg daily. 3. Bactrim DS, one tablet p.o. b.i.d. for four weeks. 4. Plavix 75 mg daily. 5. Continue dressing on the right lower abdominal wound b.i.d. 6. Aspirin 81 mg daily. 7. Percocet 5/325, one tablet q.8 p.r.n. 8. Tresiba 10 units subcu at bedtime. 9. Lisinopril 40 mg daily. 10. Inderal LA 120 mg daily. 11. Amlodipine 10 mg daily. 12. Atorvastatin 80 mg daily. 13. Glucophage 500 b.i.d. 14. Amitriptyline 75 mg at bedtime. 15. Tylenol 650 q.6 p.r.n. CONSULTATION IN THE HOSPITAL Dr. Lukasz Grissom from Urology services. LAB WORKUP ON DISCHARGE Sodium 138, potassium 3.8, chloride 106, BUN 15, creatinine 0.9. CBC shows WBC 4.5, hemoglobin 9.8, hematocrit 30.7, platelet count of 325, glucose 193. Blood cultures are negative. Urine culture is growing Gram-negative rods, more than 100,000 colonies. Final one is still pending. Urinalysis was positive for 4+ bacteria. RADIOLOGICAL STUDIES DONE DURING HOSPITALIZATION WERE: Unit #: [id number] #: [id number] Patient: ALEXANDRU GLORIA CT scan of the abdomen and pelvis that shows fat stranding around the urinary bladder suggesting cystitis. No renal or ureteral stones. Normal GI tract. Mild sigmoid diverticulosis. HOSPITAL COURSE Mr. Alexandru Gloria is a 37-year-old male who was admitted to the hospital with a complaint of dysuria and unable to urinate and severe pain. Patient was admitted to Med/Surg unit. Patient was found to have cystitis and prostatitis. PSA level was very much elevated. Patient was started on IV Rocephin and doxycycline. Dr. Grissom was consulted. CT scan is normal. Patient is being discharged home on above medications. Patient's medications have been changed to Bactrim which needs to be continued for four weeks. Patient will be discharged home on antibiotics and Flomax. Patient is also being given Percocet, 15 tablets to be used on p.r.n. basis although he is feeling much better right now but would like to have some pain medicine at home. Patient will follow with Dr. Grissom, urologist, in two to three weeks. EXAMINATION ON DISCHARGE Blood pressure is 117/58, respiratory rate 16, pulse is 67, temperature 98.1, oxygen saturation is 98%. HEAD is normocephalic. CHEST has fair air entry. CVS is regular rhythm. ABDOMEN - wound dressing is present. EXTREMITIES - negative edema. DISCHARGE INSTRUCTIONS 1. Patient is being discharged home in stable condition. 2. Medication as per Med/Rec. 3. Follow up with primary care provider in one week. 4. Urine culture report to be reviewed as outpatient. 5. Follow up with Dr. Grissom, urology, in 2-3 weeks. Patient may need (1) as outpatient. 6. Prescription for Percocet, 15 tablets, is being written. Plan of care has been discussed with patient at length. Dictated by... Bell Herrera TD: 03/26/2017 11:02 JOB #: [id number] DISCHARGE SUMMARY Page 1 of 1 X Karely Pro MD DISCHARGE SUMMARY
--- NOTE | ~2017-03-21 | HP ---
Unit #: [id number] #: [id number] Patient: BINDU GLORIA [id number] [address] [place], [place] [address] [id number] I MR#: [id number] NAME: BINDU GLORIA ROOM: 473 Age: 37 Sex: M Admission Date: 03/21/2017 : 1980 Attending Physician: Karely Pro M.D. Primary Care Physician: Karely Pro M.D. HISTORY AND PHYSICAL ADMISSION DIAGNOSES 1. Urinary retention with questionable decreased urinary output. 2. Obesity. 3. History of CVA with hemorrhagic transformation. 4. History of DVT, off of anticoagulation secondary to history of CVA. 5. Diabetes. 6. Dyslipidemia. HISTORY OF PRESENT ILLNESS Mr. Gloria is a 37-year-old gentleman, a patient of Dr. Pro, who comes to the hospital with direct admission from Dr. Pro's office secondary to urinary difficulty and dysuria. The patient also tells me that his urinary output was significantly low. He denies any fever or chills. Denies any nausea, vomiting or abdominal pain. Denies any headache, dizziness, chest pain or syncopal episode. PAST MEDICAL HISTORY Again, significant for history of obesity, hypertension, dyslipidemia, CVA with hemorrhagic transformation, history of DVT and diabetes. PAST SURGICAL HISTORY Significant for left carotid endarterectomy and right upper quadrant abdominal wall abscess status post I and D, as well as left ankle surgery. MEDICATIONS I do not have the home medications in front of me, but this will be clarified with the pharmacy and restarted accordingly. ALLERGIES Penicillin. SOCIAL HISTORY Denies any tobacco, alcohol or illicit drugs. FAMILY HISTORY Family history is unremarkable. PHYSICAL EXAMINATION GENERAL: the patient is a 37-year-old gentleman in no acute distress. VITAL SIGNS: BP 137/78, heart rate 84, respirations 19, temperature 98.7. HEENT: Head is atraumatic. Pupils are equal, round and reactive to light and accommodation. Extraocular muscles are intact. Oropharynx is clear. NECK: Neck is supple. No masses. No JVD. No bruit. RESPIRATORY: Chest is diminished bilaterally. Unit #: [id number] #: [id number] Patient: BINDU GLORIA CARDIOVASCULAR: S1, S2. No murmurs. ABDOMEN: Abdomen is soft, nontender, nondistended. EXTREMITIES: Lower extremities without any cyanosis, clubbing or edema. NEUROLOGIC: Patient grossly intact. No focal deficits. LABS AND DIAGNOSTICS Currently pending. ASSESSMENT AND PLAN 1. Urinary retention with decreased urinary output, questionable UTI. Started on Rocephin per Dr. Pro. Follow up on chemistry. Also, urology consult was obtained with Dr. Madison. 2. History of CVA with hemorrhagic transformation. 3. History of DVT, not on anticoagulation secondary to previous. 4. Obesity. 5. Diabetes. 6. Dyslipidemia. 7. GI and DVT prophylaxis. Will do Pepcid and SCDs. Dictated by Bell Farmer/moira TD: 03/23/2017 09:57 JOB #: [id number] HISTORY AND PHYSICAL Page 1 of 1 X Frandy Daniel MD X HISTORY AND PHYSICAL
[~2017-03-21 13:32] MED LIST changes: -BACTRIM DS TAB1 EACH PO; -DAKIN'S473 M1 TOP; -FLOMAX0.4 M1 PO; -FOLIC ACID1 MG PO; -LO-DOSE ASPIRIN81 M1 PO; -LOPRESSOR PO; -METFORMIN PO; -NORVASC10 MG PO; -PERCOCET5/325 PO; -PROPRANOLOL PO; -TRESIBA FL100 UNIT/1 SUBQ; -ZESTRIL40 MG PO
[2017-03-21 20:05] LABS: URINE APPEARANCE TURBID; URINE BILIRUBIN NEG (NEG); URINE BLOOD 1+ (NEG); URINE COLOR DK YELLOW; URINE GLUCOSE 250 MG/DL (NEG); URINE KETONE NEG (NEG); URINE LEUKOCYTE ESTERASE 2+ (NEG); URINE NITRATE POS (NEG); URINE PH 5.5 (5-8); URINE PROTEIN 2+ (NEG); URINE SPECIFIC GRAVITY 1.031 (1.003-1.035)
[2017-03-21 20:08] LABS: URINE BACTERIA AUWI 4+ (NEGATIVE); URINE SQUAMOUS EPITHELIAL CELL NONE SEEN /[HPF]; UWBCS1 AUWI INNUM (0-5)
[2017-03-21] MEDS ORDERED: LO-DOSE ASPIRIN81 M1 PO (21:06)
[2017-03-21] MEDS ORDERED: CLOPIDOGREL75 MG PO (21:07)
[2017-03-21] MEDS ORDERED: PROPRANOLOL PO (21:14)
[2017-03-21] MEDS ORDERED: METFORMIN PO (21:15)
[2017-03-21] MEDS ORDERED: LOPRESSOR PO (21:16)
[2017-03-21] MEDS ORDERED: LIPITOR80 MG PO (21:16)
[2017-03-21] MEDS ORDERED: NORVASC10 MG PO ×2 (21:17→21:18)
[2017-03-21] MEDS ORDERED: ZESTRIL40 MG PO (21:18)
[2017-03-21] MEDS ORDERED: BACTRIM DS TAB1 EACH PO (21:19)
[2017-03-21] MEDS ORDERED: FOLIC ACID1 MG PO (21:21)
[2017-03-21] MEDS ORDERED: AMITRIPTYLINE H75 MG PO (21:22)
[2017-03-21] MEDS ORDERED: TRESIBA FL100 UNIT/1 SUBQ (21:23)
[2017-03-21] MEDS ORDERED: DAKIN'S473 M1 TOP (21:27)
[2017-03-22 03:56] LABS: BASOPHIL% 0.8 % (0-2.5); EOSINOPHIL# 0.1 X10e3 (0-0.7); LYMPHOCYTE# 2.4 X10e3 (1.0-3.5); MEAN CELL VOLUME 71.1 FL (83-96); MEAN CORPUSCULAR HEMOGLOBIN 22.9 PG (28-34); MEAN CORPUSCULAR HGB CONC 32.2 g/dL (30-36); MEAN PLATELET VOLUME 7.3 FL (6.5-11.5); MONOCYTE# 0.5 X10e3 (0-1.0); MONOCYTE% 10.1 % (3.0-12.0); NEUTROPHIL# 2.3 X10e3 (1.5-7.1); NEUTROPHIL% 43.1 % (40-75); PLATELET COUNT 346 X10e3 (140-420); RED BLOOD COUNT 4.35 X10e (3.90-5.60); WHITE BLOOD COUNT 5.4 X10e3 (4.0-10.5)
[2017-03-22 04:09] LABS: DIFF IND NO
[2017-03-22 04:17] LABS: ALBUMIN SERUM 3.3 g/dL (3.5-5.0); BILIRUBIN,TOTAL 0.1 mg/dL (0.2-2.0); CALCIUM SERUM 8.6 mg/dL (8.4-10.2); CREATININE SERUM 0.9 mg/dL (0.6-1.4); GLOM FILT RATE Estimated 110.3 mL/min (>60); POTASSIUM 3.6 mmol/L (3.5-5.1)
[2017-03-23 03:48] LABS: HEMATOCRIT 30.7 % (38.0-50.0); HEMOGLOBIN 9.8 gm/dL (13.0-16.0); MEAN CELL VOLUME 71.3 FL (83-96); MEAN CORPUSCULAR HEMOGLOBIN 22.7 PG (28-34); MEAN CORPUSCULAR HGB CONC 31.8 g/dL (30-36); MEAN PLATELET VOLUME 7.5 FL (6.5-11.5); RED BLOOD COUNT 4.3 X10e (3.90-5.60); WHITE BLOOD COUNT 4.5 X10e3 (4.0-10.5)
[2017-03-23 04:06] LABS: BUN/CREATININE RATIO 16.66; CALCIUM SERUM 8.1 mg/dL (8.4-10.2); CREATININE SERUM 0.9 mg/dL (0.6-1.4); GLOM FILT RATE Estimated 110.3 mL/min (>60); POTASSIUM 3.8 mmol/L (3.5-5.1)
[2017-03-23] MEDS ORDERED: FLOMAX0.4 M1 PO (15:38)
[2017-03-23] MEDS ORDERED: PERCOCET5/325 PO (15:38)
[2017-03-25 03:16] LABS: PSA, FREE 0.1 ng/mL (())
== END 2017-03-23 17:00 | disposition home or self-care (01) | DRG 728 ==
LOC: C4C 17:19
PROVIDERS: Hospitalist; Physician Assistant Medical
DX: N41.3 Prostatocystitis (principal); E66.01 Morbid (severe) obesity due to excess calories; E11.9 Type 2 diabetes mellitus without complications; Z79.84 Long term (current) use of oral hypoglycemic drugs; E78.5 Hyperlipidemia, unspecified; Z86.73 Personal history of transient ischemic attack (TIA), and cerebral infarction without residual deficits; Z86.718 Personal history of other venous thrombosis and embolism; Z88.0 Allergy status to penicillin
CPT/HCPCS: 74176; 80048; 80053; 81003; 82947; 84153; 84154; 85025; 85027; 87040; 87086; 87088; 87186; J0696; J1650